=== PATIENT | female | born 1990 | race Two or more races ===

== ENCOUNTER 2024-01-12 09:41 | Outpatient (CLI) | payer OTHER | END 2024-01-12 10:04 | disposition home or self-care (01) | LOC: SONOGRAMA 09:41 | PROVIDERS: ATTEND Pathology Anatomic Pathology & Clinical Pathology | DX: D34 Benign neoplasm of thyroid gland (principal); E07.89 Other specified disorders of thyroid; E04.2 Nontoxic multinodular goiter ==

== ENCOUNTER 2025-10-14 15:30 | Outpatient (CLI) | payer OTHER | END 2025-10-14 15:34 | disposition home or self-care (01) | LOC: SONOGRAMA 15:30 | PROVIDERS: ATTEND Pathology Anatomic Pathology & Clinical Pathology | DX: D34 Benign neoplasm of thyroid gland (principal); E07.89 Other specified disorders of thyroid; E04.2 Nontoxic multinodular goiter ==